=== PATIENT | female | born 1950 | race Hispanic/Latino ===

== ENCOUNTER 2017-09-18 10:16 | Emergency (ER) | payer MEDICARE | END 2017-09-18 10:44 | disposition home or self-care (01) | LOC: EDH 10:16 | DX: K64.9 Unspecified hemorrhoids (principal); E78.5 Hyperlipidemia, unspecified; I10 Essential (primary) hypertension; Z88.0 Allergy status to penicillin; Z88.6 Allergy status to analgesic agent; Z88.8 Allergy status to other drugs, medicaments and biological substances ==

== ENCOUNTER 2017-09-23 17:27 | Emergency (ER) | payer MEDICARE ==
[2017-09-23 18:07] LABS: BASOPHILS % (AUTO) 0.8 % (0.0-5.0); EOSINOPHILS % (AUTO) 1.9 % (0.0-8.0); HEMATOCRIT 40.4 % (36-48); LYMPHOCYTES % (AUTO) 34.3 % (21.0-51.0); MEAN CORPUSCULAR HEMOGLOBIN 30.1 pg (27.0-33.0); MEAN CORPUSCULAR HGB CONC 34.8 g/dL (32.0-36.0); MEAN CORPUSCULAR VOLUME 86.4 fL (79-99); MONOCYTES % (AUTO) 7.8 % (3.0-13.0); NEUTROPHILS % (AUTO) 55.2 % (40.0-77.0); PLATELET COUNT (AUTO) 196 K/uL (130-400); RED BLOOD CELL COUNT(AUTO) 4.67 MIL/uL (4.00-5.50); RED CELL DISTRIBUTION WIDTH 14.4 % (11.0-15.5)
[2017-09-23 18:12] LABS: APPEARANCE,URINE Clear (CLEAR); BILIRUBIN,URINE Negative (NEGATIVE); COLOR,URINE Yellow (YELLOW); GLUCOSE, URINE (UA) Negative (NEGATIVE); KETONES,URINE Negative (NEGATIVE); LEUKOCYTE ESTERASE ,URINE Small (NEGATIVE); NITRATE,URINE Negative (NEGATIVE); OCCULT BLOOD,URINE Negative (NEGATIVE); PH,URINE 6.5 (5.0-8.0); PROTEIN,URINE Negative (NEGATIVE)
[2017-09-23 18:18] LABS: AMPHET/METH SCREEN,URINE NEGATIVE (NEGATIVE); BARBITURATE SCREEN, URINE NEGATIVE (NEGATIVE); BENZODIAZEPINES SCREEN,URINE NEGATIVE (NEGATIVE); CANNABINOID SCREEN,URINE NEGATIVE (NEGATIVE); COCAINE SCREEN,URINE NEGATIVE (NEGATIVE); OPIATE SCREEN,URINE NEGATIVE (NEGATIVE); PHENCYCLIDINE SCREEN,URINE NEGATIVE (NEGATIVE)
[2017-09-23 18:20] LABS: CREATININE 0.8 mg/dL (0.5-1.5); INR 1.09 (0.85-1.15); PARTIAL THROMBOPLASTIN TIME 23.3 SEC (26.3-35.5); POTASSIUM 3.1 mmol/L (3.5-5.1); PROTHROMBIN TIME 11.4 SEC (9.6-11.6)
[2017-09-23 18:29] LABS: BACTERIA,URINE Rare /HPF (None Seen); RBC,URINE 0-1 /HPF (0-1); SQUAMOUS EPITHELIAL CELL,UR Rare /LPF (0-2)
[2017-09-23] MEDS ORDERED: POTASSIUM BICARB/CIT AC 25 MEQ TABLET.EFF ONE (18:30)
[2017-09-23] MEDS ORDERED: TRAMADOL HCL 50 MG TABLET ONE (18:31)
[2017-09-23 18:32] LABS: ALBUMIN 3.6 g/dL (3.5-5.0); BILIRUBIN,TOTAL 2.1 mg/dL (0.2-1.0); CREATINE KINASE MB 0.7 ng/mL (0.5-3.6); TOTAL PROTEIN, SERUM 6.1 g/dL (6.0-8.3)
== END 2017-09-23 19:20 | disposition home or self-care (01) ==
LOC: EDH 17:27
DX: M25.511 Pain in right shoulder (principal); I10 Essential (primary) hypertension; E78.5 Hyperlipidemia, unspecified; Z88.0 Allergy status to penicillin; Z88.6 Allergy status to analgesic agent; Z88.8 Allergy status to other drugs, medicaments and biological substances
CPT/HCPCS: 36415; 71045; 73030; 80053; 80305; 81001; 82150; 82550; 82553; 83690; 84484; 85025; 85610; 85730; 93005

== ENCOUNTER 2017-10-20 00:25 | Emergency (ER) | payer MEDICARE ==
[2017-10-20] MEDS ORDERED: LIDOCAINE HCL 2% JELLY 5 ML ONE (00:58)
[2017-10-20] MEDS ORDERED: HYDROCORTISONE 25 MG SUPPOSITORY PR ONE (01:03)
== END 2017-10-20 01:39 | disposition home or self-care (01) ==
LOC: EDH 00:25
DX: K64.8 Other hemorrhoids (principal); M19.90 Unspecified osteoarthritis, unspecified site; E78.5 Hyperlipidemia, unspecified; I10 Essential (primary) hypertension; Z88.6 Allergy status to analgesic agent; Z98.890 Other specified postprocedural states

== ENCOUNTER 2018-06-18 08:54 | Emergency (ER) | payer MEDICARE ==
[2018-06-18] MEDS ORDERED: ONDANSETRON 4 MG TABLET ONE (09:09)
[2018-06-18 09:10] LABS: BASOPHILS % (AUTO) 0.6 % (0.0-5.0); EOSINOPHILS % (AUTO) 2.5 % (0.0-8.0); HEMATOCRIT 44.3 % (36-48); LYMPHOCYTES % (AUTO) 36.9 % (21.0-51.0); MEAN CORPUSCULAR HEMOGLOBIN 29.3 pg (27.0-33.0); MEAN CORPUSCULAR HGB CONC 33.5 g/dL (32.0-36.0); MEAN CORPUSCULAR VOLUME 87.5 fL (79-99); MONOCYTES % (AUTO) 6.1 % (3.0-13.0); NEUTROPHILS % (AUTO) 53.9 % (40.0-77.0); NUCLEATED RED BLOOD CELLS 0.1 % (0.0-0.19); PLATELET COUNT (AUTO) 158 K/uL (130-400); RED BLOOD CELL COUNT(AUTO) 5.06 MIL/uL (4.00-5.50); RED CELL DISTRIBUTION WIDTH 13.9 % (11.0-15.5); WHITE BLOOD COUNT (AUTO) 6.8 K/uL (4.8-10.8)
[2018-06-18 09:20] LABS: CREATININE 0.8 mg/dL (0.5-1.5); POTASSIUM 3.9 mmol/L (3.5-5.1)
[2018-06-18 09:25] LABS: ALBUMIN 3.5 g/dL (3.5-5.0); BILIRUBIN,TOTAL 2.2 mg/dL (0.2-1.0); TOTAL PROTEIN, SERUM 6.9 g/dL (6.0-8.3)
== END 2018-06-18 10:37 | disposition home or self-care (01) ==
LOC: EDH 08:54
DX: R42 Dizziness and giddiness (principal); M19.90 Unspecified osteoarthritis, unspecified site; F41.9 Anxiety disorder, unspecified; F32.9 Major depressive disorder, single episode, unspecified; E78.5 Hyperlipidemia, unspecified; I10 Essential (primary) hypertension; M54.12 Radiculopathy, cervical region; Z88.6 Allergy status to analgesic agent; Z98.890 Other specified postprocedural states
CPT/HCPCS: 36415; 80053; 85025; 99284; Q0162

== ENCOUNTER 2018-09-28 21:16 | Emergency (ER) | payer MEDICARE ==
[2018-09-28] MEDS ORDERED: MAG HYDROX/AL HYDROX/SIMETH ES 30 ML SUSP UDCUP ONE (21:43)
[2018-09-28] MEDS ORDERED: LIDOCAINE HCL 2% VISCOUS 15 ML UDCUP ONE (21:43)
[2018-09-28] MEDS ORDERED: ONDANSETRON HCL 4 MG/2 ML VIAL ONE (21:44)
[2018-09-28 21:45] LABS: BASOPHILS % (AUTO) 1.5 % (0.0-5.0); EOSINOPHILS % (AUTO) 2.4 % (0.0-8.0); LYMPHOCYTES % (AUTO) 33.8 % (21.0-51.0); MEAN CORPUSCULAR HEMOGLOBIN 29.9 pg (27.0-33.0); MEAN CORPUSCULAR HGB CONC 33.8 g/dL (32.0-36.0); MEAN CORPUSCULAR VOLUME 88.4 fL (79-99); MONOCYTES % (AUTO) 5.9 % (3.0-13.0); NEUTROPHILS % (AUTO) 56.4 % (40.0-77.0); PLATELET COUNT (AUTO) 191 K/uL (130-400); RED BLOOD CELL COUNT(AUTO) 4.52 MIL/uL (4.00-5.50); RED CELL DISTRIBUTION WIDTH 14.5 % (11.0-15.5); WHITE BLOOD COUNT (AUTO) 7.7 K/uL (4.8-10.8)
[2018-09-28 21:57] LABS: CREATININE 0.7 mg/dL (0.5-1.5)
[2018-09-28 22:01] LABS: ALBUMIN 3.4 g/dL (3.5-5.0); BILIRUBIN,DIRECT 0.1 mg/dL (0.0-0.3); BILIRUBIN,TOTAL 0.9 mg/dL (0.2-1.0); TOTAL PROTEIN, SERUM 6.4 g/dL (6.0-8.3)
== END 2018-09-28 23:27 | disposition home or self-care (01) ==
LOC: EDH 21:16
DX: R10.13 Epigastric pain (principal); I10 Essential (primary) hypertension; F32.9 Major depressive disorder, single episode, unspecified; E78.5 Hyperlipidemia, unspecified; M19.90 Unspecified osteoarthritis, unspecified site; Z88.5 Allergy status to narcotic agent; Z88.1 Allergy status to other antibiotic agents
CPT/HCPCS: 36415; 74176; 80048; 80076; 82550; 83690; 84484; 85025; 93005; 96374; 99284; J2405

== ENCOUNTER 2019-05-01 22:09 | Emergency (ER) | payer MEDICARE ==
[2019-05-01 22:38] LABS: BASOPHILS % (AUTO) 0.9 % (0.0-5.0); EOSINOPHILS % (AUTO) 3.4 % (0.0-8.0); HEMATOCRIT 40.8 % (36-48); LYMPHOCYTES % (AUTO) 37.3 % (21.0-51.0); MEAN CORPUSCULAR HEMOGLOBIN 30.5 pg (27.0-33.0); MEAN CORPUSCULAR VOLUME 89.6 fL (79-99); MONOCYTES % (AUTO) 8.1 % (3.0-13.0); NEUTROPHILS % (AUTO) 50.3 % (40.0-77.0); NUCLEATED RED BLOOD CELLS 0.1 % (0.0-0.19); PLATELET COUNT (AUTO) 163 K/uL (130-400); RED BLOOD CELL COUNT(AUTO) 4.56 MIL/uL (4.00-5.50); RED CELL DISTRIBUTION WIDTH 13.6 % (11.0-15.5); WHITE BLOOD COUNT (AUTO) 7.6 K/uL (4.8-10.8)
[2019-05-01 22:46] LABS: APPEARANCE,URINE Cloudy (CLEAR); BILIRUBIN,URINE Negative (NEGATIVE); COLOR,URINE Yellow (YELLOW); GLUCOSE, URINE (UA) Negative (NEGATIVE); KETONES,URINE Negative (NEGATIVE); LEUKOCYTE ESTERASE ,URINE Trace (NEGATIVE); NITRATE,URINE Negative (NEGATIVE); OCCULT BLOOD,URINE Negative (NEGATIVE); PROTEIN,URINE Negative (NEGATIVE)
[2019-05-01 22:46] LABS: POTASSIUM 3.8 mmol/L (3.5-5.1)
[2019-05-01 22:50] LABS: ALBUMIN 3.7 g/dL (3.5-5.0); BILIRUBIN,TOTAL 1.2 mg/dL (0.2-1.0); TOTAL PROTEIN, SERUM 6.6 g/dL (6.0-8.3)
[2019-05-01 23:01] LABS: BACTERIA,URINE Rare /HPF (None Seen); CALCIUM OXALATE CRYSTALS,UR Many /LPF (None Seen); RBC,URINE 0-1 /HPF (0-1); WBC,URINE 0-1 /HPF (0-1)
[2019-05-01] MEDS ORDERED: SODIUM CHLORIDE 0.9% 1000ML 1,000 ML IV ONE (23:19)
[2019-05-01] MEDS ORDERED: ONDANSETRON HCL 4 MG/2 ML VIAL ONE (23:20)
[2019-05-01] MEDS ORDERED: MEPERIDINE-PF 25 MG/ML SYG ONE (23:21)
[2019-05-01] MEDS ORDERED: FAMOTIDINE/PF 20 MG/2 ML VIAL IV ONE (23:21)
[2019-05-01] MEDS ORDERED: IOHEXOL-350 75 ML VIAL IV ONE (23:25)
== END 2019-05-02 01:14 | disposition home or self-care (01) ==
LOC: EDH 22:09
DX: K29.70 Gastritis, unspecified, without bleeding (principal); K82.9 Disease of gallbladder, unspecified; F41.9 Anxiety disorder, unspecified; M19.90 Unspecified osteoarthritis, unspecified site; F32.9 Major depressive disorder, single episode, unspecified; E78.5 Hyperlipidemia, unspecified; I10 Essential (primary) hypertension; E03.9 Hypothyroidism, unspecified; K21.9 Gastro-esophageal reflux disease without esophagitis; Z88.6 Allergy status to analgesic agent; Z98.890 Other specified postprocedural states
CPT/HCPCS: 36415; 74177; 76705; 80053; 81001; 82150; 83690; 84484; 85025; 93005; 96361; 96374; 96375; 99285; J2175; J2405; J3490; J7030; Q9967

== ENCOUNTER 2020-01-04 00:59 | Emergency (ER) | payer MEDICARE ==
[~2020-01-04 00:59] MED LIST: ALEN70TA10 PO; AMLO2.5T4 PO; ATOR40TA71 PO; ESOM40CA54 PO; LEVO500T89 PO; LEVO75TA10 PO; LISI-613 PO; METR-172 PO; PARO-37 PO
[2020-01-04 01:20] LABS: APPEARANCE,URINE Clear (CLEAR); BILIRUBIN,URINE Negative (NEGATIVE); COLOR,URINE Yellow (YELLOW); GLUCOSE, URINE (UA) Negative (NEGATIVE); KETONES,URINE Negative (NEGATIVE); LEUKOCYTE ESTERASE ,URINE Trace (NEGATIVE); NITRATE,URINE Negative (NEGATIVE); OCCULT BLOOD,URINE Negative (NEGATIVE); PH,URINE 6.5 (5.0-8.0); PROTEIN,URINE Negative (NEGATIVE)
[2020-01-04 01:29] LABS: BASOPHILS % (AUTO) 0.5 % (0.0-5.0); EOSINOPHILS % (AUTO) 2.7 % (0.0-8.0); HEMATOCRIT 37.6 % (36-48); LYMPHOCYTES % (AUTO) 41.3 % (21.0-51.0); MEAN CORPUSCULAR HEMOGLOBIN 29.1 pg (27.0-33.0); MEAN CORPUSCULAR HGB CONC 33.5 g/dL (32.0-36.0); MEAN CORPUSCULAR VOLUME 86.8 fL (79-99); MONOCYTES % (AUTO) 7.2 % (3.0-13.0); PLATELET COUNT (AUTO) 153 K/uL (130-400); RED BLOOD CELL COUNT(AUTO) 4.33 MIL/uL (4.00-5.50); RED CELL DISTRIBUTION WIDTH 13.4 % (11.0-15.5)
[2020-01-04] MEDS ORDERED: ONDANSETRON HCL 4 MG/2 ML VIAL ONE (01:29)
[2020-01-04] MEDS ORDERED: KETOROLAC TROMETHAMINE 15MG/ML ONE (01:30)
[2020-01-04 01:31] LABS: BACTERIA,URINE Few /HPF (None Seen); RBC,URINE None Seen /HPF (0-1); WBC,URINE None Seen /HPF (0-1)
[2020-01-04 01:32] LABS: MUCUS,URINE Moderate LPF (None Seen); SQUAMOUS EPITHELIAL CELL,UR Few /HPF (0-2)
[2020-01-04 01:39] LABS: CREATININE 0.9 mg/dL (0.5-1.5); POTASSIUM 4.1 mmol/L (3.5-5.1)
[2020-01-04 01:43] LABS: ALBUMIN 3.8 g/dL (3.5-5.0); BILIRUBIN,DIRECT 0.3 mg/dL (0.0-0.3); BILIRUBIN,TOTAL 1.7 mg/dL (0.2-1.0)
== END 2020-01-04 03:33 | disposition home or self-care (01) ==
LOC: EDH 00:59
DX: K80.50 Calculus of bile duct without cholangitis or cholecystitis without obstruction (principal); R10.10 Upper abdominal pain, unspecified; M19.90 Unspecified osteoarthritis, unspecified site; F32.9 Major depressive disorder, single episode, unspecified; K21.9 Gastro-esophageal reflux disease without esophagitis; I10 Essential (primary) hypertension; E03.9 Hypothyroidism, unspecified; E78.5 Hyperlipidemia, unspecified; F41.9 Anxiety disorder, unspecified; Z98.890 Other specified postprocedural states; Z88.6 Allergy status to analgesic agent; Z88.3 Allergy status to other anti-infective agents
CPT/HCPCS: 36415; 74176; 76705; 80048; 80076; 81001; 82550; 83690; 84484; 85025; 93005; 96374; 96375; 99285; J1885; J2405

== ENCOUNTER 2021-12-24 19:33 | Emergency (ER) | payer OTHER, MEDICARE ==
[~2021-12-24] VITALS: Ht 157.5 cm; Wt 93.0 kg
[~2021-12-24 19:33] MED LIST changes: -ALEN70TA10 PO; +ALEN70TA80 PO; -LEVO500T89 PO; +LEVO500T90 PO; -LISI-613 PO; +LISI20TA24 PO
[2021-12-24] MEDS ORDERED: CYCLOBENZAPRINE HCL 10 MG TABLET ONE (19:53)
[2021-12-24] MEDS ORDERED: HYDROCODONE/ACETAMINOPHEN 10/325 MG TAB ONE (19:54)
[2021-12-24] MEDS ORDERED: HYDROCODONE/ACETAMINOPHEN 5/325 MG TAB PO SCH (20:00)
[2021-12-24] MEDS ORDERED: CYCLOBENZAPRINE HCL 10 MG TABLET PO SCH (20:00)
[2021-12-24] MEDS ORDERED: NAPR-1180 PO (22:12)
[2021-12-24] MEDS ORDERED: CYCL10TA16 PO (22:12)
[2021-12-24 22:17] VITALS: BP 147/68
== END 2021-12-24 22:23 | disposition home or self-care (01) ==
LOC: EDH 19:33
DX: S20.212A Contusion of left front wall of thorax, initial encounter (principal); S50.02XA Contusion of left elbow, initial encounter; S60.221A Contusion of right hand, initial encounter; S50.312A Abrasion of left elbow, initial encounter; I10 Essential (primary) hypertension; Z88.5 Allergy status to narcotic agent; Z79.899 Other long term (current) drug therapy; Z79.1 Long term (current) use of non-steroidal anti-inflammatories (NSAID); X58.XXXA Exposure to other specified factors, initial encounter; Y93.89 Activity, other specified; Y92.89 Other specified places as the place of occurrence of the external cause; Y99.8 Other external cause status
CPT/HCPCS: 71250; 73080; 73130

== ENCOUNTER 2023-09-03 13:21 | Emergency (ER) | payer MEDICARE ==
[~2023-09-03] VITALS: Ht 157.5 cm; Wt 90.7 kg
[~2023-09-03 13:21] MED LIST changes: +CYCL10TA16 PO; +LEVO-70 PO; -LEVO500T90 PO; +NAPR-1180 PO
[2023-09-03 13:33] VITALS: BP 172/87; PULSE 84; RESP 16
[2023-09-03] MEDS ORDERED: IBUPROFEN 600 MG TABLET PO ONE (14:00)
[2023-09-03] MEDS ORDERED: PREDNISONE 20 MG TABLET PO ONE (16:00)
[2023-09-03] MEDS ORDERED: PRED20TA3 PO (16:03)
== END 2023-09-03 16:10 | disposition home or self-care (01) ==
LOC: EDH 13:21
DX: M19.90 Unspecified osteoarthritis, unspecified site (principal); M25.542 Pain in joints of left hand; M25.541 Pain in joints of right hand; E78.00 Pure hypercholesterolemia, unspecified; I10 Essential (primary) hypertension; K21.9 Gastro-esophageal reflux disease without esophagitis; Z79.899 Other long term (current) drug therapy; Z88.5 Allergy status to narcotic agent
CPT/HCPCS: 73130

== ENCOUNTER 2025-01-26 13:43 | Emergency (ER) | payer OTHER, MEDICAID ==
[~2025-01-26] VITALS: Ht 154.9 cm; Wt 89.8 kg
[~2025-01-26 13:43] MED LIST changes: -ESOM40CA54 PO; +ESOM40CA66 PO; +PRED20TA3 PO
[2025-01-26] MEDS: LACTATED RINGERS 1000ML 1,000 ML IV ONE (13:51)
[2025-01-26 14:00] VITALS: BP 129/70; PULSE 69; RESP 25; TEMP 98.2; O2SAT 94
--- NOTE | 2025-01-26 14:01 | EKG ---
[facility] Test Date: 2025-01-26 Test Time: 13:58:50 Pat Name: OUSMANE MO Department: [facility] Room: Gender: F Bookkeeper Assistant: [id number] : 1950 Requested By: RADHA VILLEDA Order Number: [id number] Reading MD: [place] Measurements Intervals [place] Rate: 74 P: 42 UT: 157 QRS: 19 QRSD: 92 T: 39 QT: 391 QTc: 435 Interpretive Statements Sinus rhythm Compared to ECG 05/18/2020 19:08:34 No significant changes Electronically Signed On 01-26-2025 17:35:08 CDT by [place] Please click the below link to view image of tracing.
[2025-01-26 14:14] LABS: BASOPHILS # (AUTO) 0.06 K/uL (0.00-0.20); BASOPHILS % (AUTO) 0.7 % (0.0-5.0); EOSINOPHILS # (AUTO) 0.25 K/uL (0.00-0.70); EOSINOPHILS % (AUTO) 2.9 % (0.0-8.0); HEMATOCRIT 41.2 % (36-48); IMMATURE GRANULOCYTE ABSOLUTE 0.02 K/uL (0-1); LYMPHOCYTES % (AUTO) 34.5 % (21.0-51.0); MEAN CORPUSCULAR HEMOGLOBIN 29.7 pg (27.0-33.0); MEAN CORPUSCULAR HGB CONC 33.7 g/dL (32.0-36.0); MONOCYTES # (AUTO) 0.6 K/uL (0.1-1.0); NEUTROPHILS # (AUTO) 4.7 K/uL (1.8-7.7); NEUTROPHILS % (AUTO) 54.7 % (40.0-77.0); PLATELET COUNT (AUTO) 205 K/uL (130-400); RED BLOOD CELL COUNT(AUTO) 4.68 MIL/uL (4.00-5.50); RED CELL DISTRIBUTION WIDTH 13.7 % (11.0-15.5); WHITE BLOOD COUNT (AUTO) 8.5 K/uL (4.8-10.8)
[2025-01-26 14:24] LABS: APPEARANCE,URINE CLEAR (CLEAR); BILIRUBIN,URINE NEGATIVE (NEGATIVE); COLOR,URINE YELLOW (YELLOW); GLUCOSE, URINE (UA) NEGATIVE (NEGATIVE); KETONES,URINE NEGATIVE (NEGATIVE); LEUKOCYTE ESTERASE ,URINE NEGATIVE Leu/uL (NEGATIVE); NITRATE,URINE NEGATIVE (NEGATIVE); OCCULT BLOOD,URINE NEGATIVE (NEGATIVE); PH,URINE 5.5 (5.0-8.0); PROTEIN,URINE 10 mg/dL (NEGATIVE); UROBILINOGEN,URINE 0.2 mg/dL (0.2-1.0)
[2025-01-26 14:25] LABS: ADD UA MICROSCOPIC YES
[2025-01-26 14:26] LABS: CREATININE 0.5 mg/dL (0.5-1.0); MAGNESIUM 2.1 mg/dL (1.80-2.40); POTASSIUM 4.7 mmol/L (3.5-5.1)
[2025-01-26 14:29] LABS: BACTERIA,URINE RARE /HPF (None Seen); MUCUS,URINE FEW LPF (None Seen); SQUAMOUS EPITHELIAL CELL,UR RARE /HPF (0-2); UNCLASSIFIED CRYSTAL 2 /HPF (None Seen)
[2025-01-26 14:40] LABS: B-TYPE NATRIURETIC PEPTIDE 31 pg/mL (0-100)
--- NOTE | 2025-01-26 14:52 | ERN ---
General Chief Complaint: Syncope Stated Complaint: SYNCOPY Time Seen by MD: 13:44 Source: patient History of Present Illness Initial Comments Patient is a 74-year-old female coming in to be evaluated for near-syncope syncope episode earlier today. He is patient states that she had a episodes but now she feels much better. No fever no chills no nausea no vomiting. Allergies: Coded Allergies: codeine (Verified Allergy, Unknown, 09/07/19) oseltamivir (Verified Allergy, Unknown, 09/07/19) Home Meds Active Scripts Prednisone (Prednisone) 20 Mg Tablet, 2 TAB PO DAILY for 5 Days, #10 TAB 0 Refills Prov:MAGALYS RAGLAND SUPERVISOR ELECTRONICS TESTING 09/03/23 Cyclobenzaprine HCl (Flexeril) 10 Mg Tab, 10 MG PO BID, #30 TAB Prov:MONIKA MANN 12/24/21 Naproxen (Naprosyn) 500 Mg Tablet, 500 MG PO BIDPC, #60 TAB Prov:MONIKA MANN 12/24/21 Metronidazole (Metronidazole) 500 Mg Tablet, 500 MG PO TID for 3 Days, #9 TAB Prov:MANE ALMENDAREZ PPA TEACHER 09/10/19 Levofloxacin (Levofloxacin) 500 Mg Tablet, 500 MG PO DAILY for 3 Days, #3 TAB Prov:MANE ALMENDAREZ PPA TEACHER 09/10/19 Reported Medications Alendronate Sodium (Alendronate Sodium) 70 Mg Tablet, 70 MG PO QWEEK, TAB q sunday09/07/19 Esomeprazole Magnesium (Esomeprazole Magnesium) 40 Mg Capsule.dr, 40 MG PO ACBKFST, CAP 09/07/19 Levothyroxine Sodium (Levothyroxine Sodium) 75 Mcg Tablet, 75 MCG PO ACBKFST, TAB 09/07/19 Lisinopril (Lisinopril) 20 Mg Tablet, 20 MG PO DAILY, TAB 09/07/19 Amlodipine Besylate (Amlodipine Besylate) 2.5 Mg Tablet, 2.5 MG PO DAILY, TAB 09/07/19 Atorvastatin Calcium (Atorvastatin Calcium) 40 Mg Tablet, 40 MG PO HS, TAB 09/07/19 Paroxetine HCl (Paroxetine HCl) 20 Mg Tablet, 20 MG PO DAILY, TAB 09/07/19 Past Medical History Past Medical History: Hypertension, Other Medical History Other: VERTIGO Past Surgical History: Family History Family History: Negative Social History Social History: Negative Female( History) History: Not Applicable ROS Dictation CONSTITUTIONAL: No chills, no fever, weakness, no diaphoresis, no malaise. HEAD/FACE: No signs of trauma. EENT: No eye pain, no blurred vision, no tearing, no double vision, no ear pain, no ear discharge, no nose pain, no nasal congestion, no throat pain, no throat swelling, no mouth pain. RESPIRATORY: No cough, no orthopnea, no SOB, no stridor, no wheezing. CARDIOVASCULAR: No chest pain, no edema, no palpitations, no syncope. GASTROINTESTINAL/ABDOMINAL: No abdominal pain, no constipation, no diarrhea, no nausea, no vomiting. GENITOURINARY: No abnormal discharge, no dysuria, no frequent urination, no hematuria. No complaints of pain in the genitals. MUSCULOSKELETAL: No back pain, no gout, no joint pain, no joint swelling, no muscle pain, no muscle stiffness, no neck pain. INTEGUMENTARY: No change in color, no change in hair/nails, no dryness, no lesion, no lumps, no rash. NEUROLOGICAL/PSYCH: No anxiety, not depressed, no emotional problem, no headache, no numbness, no pre-existing deficit, no history of seizures, no tremors, no weakness. HEMATOLOGIC/LYMPHATIC: Not anemic, no history of blood clots, no apparent bleeding, no bruising, glands not swollen. All Systems Negative, Except as Noted. Physical Exam Physical Exam Dictation VITAL SIGNS: Reviewed. GENERAL APPEARANCE: Alert, oriented x3, no acute distress, obese. HEAD AND FACE: Non-traumatic. EYES: PERRL, pink conjunctivas, eyelid no trauma, anterior chamber clear. EARS: Pinnas intact and no signs of trauma or erythema. Ear canals clear and no discharge. TMs no erythema. NOSE: No discharge, no bleeding. OROPHARYNX: Mouth normal, teeth no caries, tongue pink. Pharynx clear, no erythema. Tonsils no exudates, no abscesses noted. Mucous membrane moist. NECK: Supple, non-tender, no thyromegaly, no masses, no JVD, no bruits. BREAST: Deferred. CHEST: No tenderness, no crepitus, no paradoxical movement, no retractions. LUNGS: Clear, well-ventilated, symmetric, no rales, no wheezing, no rhonchi, no stridor, good breath sounds bilaterally. HEART: Regular rate, regular rhythm, no murmur, no gallops. VASCULAR: No peripheral edema. ABDOMEN: Soft, positive bowel sounds, nondistended, no guarding, nontender, no rebound, no masses no hepatomegaly, no splenomegaly, no Palacios's sign, no hernias. RECTAL: Deferred. GENITAL: Deferred. NEUROLOGICAL: Normal speech, gross motor function intact, gross sensory function intact. MUSCULOSKELETAL: Neck nontender, full range of motion, back nontender, full range of motion. EXTREMITIES: Nontender, full range of motion. SKIN: Color pink, dry, no turgor, no rash, no lacerations, no abrasions, no contusions. LYMPHATICS: Deferred. Results Laboratory and Microbiology Lab and Micro Result Laboratory Tests Test 01/26/25 14:04 01/26/25 14:10 White Blood Count 8.5 K/uL (4.8-10.8) Red Blood Count 4.68 MIL/uL (4.00-5.50) Hemoglobin 13.9 g/dL (12.0-16.0) Hematocrit 41.2 % (36-48) Mean Corpuscular Volume 88.0 fL (79-99) Mean Corpuscular Hemoglobin 29.7 pg (27.0-33.0) Mean Corpuscular Hemoglobin Concent 33.7 g/dL (32.0-36.0) Red Cell Distribution Width 13.7 % (11.0-15.5) Platelet Count 205 K/uL (130-400) Mean Platelet Volume 11.4 fL (7.5-10.5) H Immature Granulocyte % (Auto) 0.2 % (0-1) Neutrophils (%) (Auto) 54.7 % (40.0-77.0) Lymphocytes (%) (Auto) 34.5 % (21.0-51.0) Monocytes (%) (Auto) 7.0 % (3.0-13.0) Eosinophils (%) (Auto) 2.9 % (0.0-8.0) Basophils (%) (Auto) 0.7 % (0.0-5.0) Neutrophils # (Auto) 4.7 K/uL (1.8-7.7) Lymphocytes # (Auto) 3.0 K/uL (1.0-4.8) Monocytes # (Auto) 0.6 K/uL (0.1-1.0) Eosinophils # (Auto) 0.25 K/uL (0.00-0.70) Basophils # (Auto) 0.06 K/uL (0.00-0.20) Absolute Immature Granulocyte (auto 0.02 K/uL (0-1) Nucleated Red Blood Cells 0.0 % (0.0-0.19) Sodium Level 143 mmol/L (136-145) Potassium Level 4.7 mmol/L (3.5-5.1) Chloride Level 107 mmol/L (101-111) Carbon Dioxide Level 29 mmol/L (21-32) Blood Urea Nitrogen 26 mg/dL (7-18) H Creatinine 0.5 mg/dL (0.5-1.0) Glomerular Filtration Rate Calc 98 mL/min (>90) Random Glucose 103 mg/dL (70-105) Total Calcium 8.5 mg/dL (8.5-10.1) Magnesium Level 2.10 mg/dL (1.80-2.40) Troponin I High Sensitivity < 4 ng/L (4-50) L B-Type Natriuretic Peptide 31 pg/mL (0-100) Urine Color YELLOW (YELLOW) Urine Appearance CLEAR (CLEAR) Urine pH 5.5 (5.0-8.0) Urine Specific [place] 1.032 (1.001-1.031) Urine Protein 10 mg/dL (NEGATIVE) H Urine Glucose (UA) NEGATIVE mg/dL (NEGATIVE) Urine Ketones NEGATIVE mg/dL (NEGATIVE) Urine Occult Blood NEGATIVE (NEGATIVE) Urine Nitrate NEGATIVE (NEGATIVE) Urine Bilirubin NEGATIVE mg/dL (NEGATIVE) Urine Urobilinogen 0.2 mg/dL (0.2-1.0) Urine Leukocyte Esterase NEGATIVE Adrian/uL Urine RBC 2-5 /HPF (0-1) H Urine WBC 2-5 /HPF (0-1) H Urine Squamous Epithelial Cells RARE /HPF (0-2) Urine Other Crystals (Auto) 2 /HPF (None Seen) Urine Bacteria RARE /HPF (None Seen) Labs Reviewed?: Yes EKG/XRAY/US/CT/MRI EKG Comment 01/26/2025 time 1:58 p.m. Ventricular rate 74 Sinus rhythm [place] [address] wave elevation or depression MDM MDM: Differential diagnosis: Syncope, near-syncope, generalized body weakness, Rationale: Tests considered and ordered secondary to shared decision making include: labs, ECG and radiology Previous outside records reviewed: Old ER visits. Risk of complication and/or morbidity or mortality of patient management: None Medications-Per medication reconciliation Need for hospitalization: Patient does meet criteria for hospitalization. Need for emergency major/minor surgery: No There are no social concerns with this patient. Prescription drug management Prescriptions will include symptomatic care Patient's prior external medical records from other ER visits were reviewed by me as indicated. Prior testing and results from previous visits were reviewed. Prior tests were taken into account with medical decision making and resource utilization, independent historian/historians were used to obtain complete medical history. I independently interpreted the test that were performed, results were reviewed by me and considered findings on radiology if ordered. Medical management and examination interpretation discussions were had by me with other qualified healthcare professionals as indicated for the patient's care. Patient presented with a syncope near-syncope episode earlier today. I did stress the importance of keeping her here to be evaluated by cardiology and has a more thorough workup but patient refused. I expressed my concerns of proper evaluation especially with her age but has been also was against admission very adamant and states that they will follow up with her doctor. ED Course Orders Procedure Category Date Status Time Cbc With Differential LAB 01/26/25 Complete 13:48 B-Type Natriuretic LAB 01/26/25 Complete Peptide 13:48 Chest 1vw RAD 01/26/25 Resulted 13:48 12 Lead Ekg Tracing- EKG 01/26/25 Complete Technical 13:48 Lactated Ringers PHA 01/26/25 Complete 1000ml (Lactated 14:00 Magnesium LAB 01/26/25 Complete 13:48 Troponin I High LAB 01/26/25 Complete Sensitivity 13:48 Urinalysis Profile LAB 01/26/25 Complete 13:48 Basic Metabolic Panel LAB 01/26/25 Complete 13:48 Current Medications Medications (Trade) Dose Ordered Sig/Travis Route PRN Reason Start Time Stop Time Status Last Admin Dose Admin Lactated Ringer's 1,000 ml @ 0 mls/hr ONCE ONCE IV 01/26/25 14:00 01/26/25 14:01 DC 01/26/25 13:51 Vital Signs Date Time Temp Pulse Resp B/P (MAP) Pulse Ox O2 Delivery O2 Flow Rate FiO2 01/26/25 14:00 98.2 69 25 129/70 94 Room Air* 0 21 01/26/25 13:49 98.2 73 20 139/85 98 Nasal Cannula 2.0 DX & DISP Disposition: AMA Departure Impression: Primary Impression: Syncope Additional Impressions: Near syncope, History of vertigo Condition: Against Medical Advice Referrals: SELF,REFERRAL (PCP) RADHA VILLEDA MD Jan 26, 2025 14:52
--- NOTE | 2025-01-26 14:58 | HMCIMG ---
Exam Type: CHEST 1VW Clinical Information: sycnope Comparison: None Findings: The lungs are clear of infiltrates. The heart is enlarged. Bony and soft tissue structures of the chest wall are unremarkable. IMPRESSION: Cardiomegaly. Clear lungs.
== END 2025-01-26 15:38 | disposition left against medical advice (07) ==
LOC: EDH 13:43
DX: R55 Syncope and collapse (principal); I10 Essential (primary) hypertension; Z79.52 Long term (current) use of systemic steroids; Z79.899 Other long term (current) drug therapy; Z88.5 Allergy status to narcotic agent
CPT/HCPCS: 99285; 96360; 71045; 96361; 83735; 84484; 80048; 83880; 85025; 81001; 36415; 93005; J7120

== ENCOUNTER 2025-07-27 22:58 | Emergency (ER) | payer OTHER, MEDICAID ==
[~2025-07-27] VITALS: Ht 180.3 cm; Wt 88.0 kg
[2025-07-27 23:50] LABS: IMMATURE GRANULOCYTE ABSOLUTE 0.02 K/uL (0-1); NUCLEATED RED BLOOD CELLS 0.0 % (0.0-0.19); PLATELET COUNT (AUTO) 163 K/uL (130-400); RED BLOOD CELL COUNT(AUTO) 4.87 MIL/uL (4.00-5.50); RED CELL DISTRIBUTION WIDTH 13.7 % (11.0-15.5); WHITE BLOOD COUNT (AUTO) 7.4 K/uL (4.8-10.8)
[2025-07-27 23:57] LABS: CREATININE 0.7 mg/dL (0.5-1.0); GLOMERULAR FILTR. RATE CALC 90.0 mL/min (>90); GLUCOSE,RANDOM 106.0 mg/dL (70-105); SODIUM SERUM 141.0 mmol/L (136-145); UREA NITROGEN, BLOOD 21.0 mg/dL (7-18)
--- NOTE | 2025-07-28 00:37 | ERN ---
ED Note History of Present Illness Stated Complaint: C/O HIGH B/P Chief Complaint: Hypertension Time Seen by MD: 23:08 Dictation: This is a 74-year-old female who presented to the emergency room stating that she and her do routine blood pressure checks intact and her blood pr essure apparently was over 200 systolic and hence they came in for evaluation. No headache blurred vision diplopia facial droop motor weakness or seizure activity. No history of any chest pain pressure hearing patient was totally asymptomatic from review standpoint Temperature 98 pulse 71 respirations 20 blood pressure 200/108 at the time of presentation with a pulse oximetry of 96% on room air Chronic medical problems include anxiety and depression and osteoarthritis, hypertension, hypercholesterolemia and hypothyroidism Allergies: Coded Allergies: codeine (Verified Allergy, Unknown, 09/07/19) oseltamivir (Verified Allergy, Unknown, 09/07/19) Home Meds Active Scripts Prednisone (Prednisone) 20 Mg Tablet, 2 TAB PO DAILY for 5 Days, #10 TAB 0 Refills Prov:MAGALYS RAGLAND RETAIL DELIVERY DRIVER 09/03/23 Cyclobenzaprine HCl (Flexeril) 10 Mg Tab, 10 MG PO BID, #30 TAB Prov:MONIKA MANN 12/24/21 Naproxen (Naprosyn) 500 Mg Tablet, 500 MG PO BIDPC, #60 TAB Prov:MONIKA MANN 12/24/21 Metronidazole (Metronidazole) 500 Mg Tablet, 500 MG PO TID for 3 Days, #9 TAB Prov:MANE ALMENDAREZ METAL TRIM ERECTOR 09/10/19 Levofloxacin (Levofloxacin) 500 Mg Tablet, 500 MG PO DAILY for 3 Days, #3 TAB Prov:MANE ALMENDAREZ METAL TRIM ERECTOR 09/10/19 Reported Medications Alendronate Sodium (Alendronate Sodium) 70 Mg Tablet, 70 MG PO QWEEK, TAB q sunday09/07/19 Esomeprazole Magnesium (Esomeprazole Magnesium) 40 Mg Capsule.dr, 40 MG PO ACBKFST, CAP 09/07/19 Levothyroxine Sodium (Levothyroxine Sodium) 75 Mcg Tablet, 75 MCG PO ACBKFST, TAB 09/07/19 Lisinopril (Lisinopril) 20 Mg Tablet, 20 MG PO DAILY, TAB 09/07/19 Amlodipine Besylate (Amlodipine Besylate) 2.5 Mg Tablet, 2.5 MG PO DAILY, TAB 09/07/19 Atorvastatin Calcium (Atorvastatin Calcium) 40 Mg Tablet, 40 MG PO HS, TAB 09/07/19 Paroxetine HCl (Paroxetine HCl) 20 Mg Tablet, 20 MG PO DAILY, TAB 09/07/19 Past Medical History Past Medical History: Anxiety, Arthritis, Depression, High Cholesterol, Hypertension, Hypothyroid Additional Past Medical Hx: VERTIGO Surgical History: Family History: Negative Social History: Negative History: Not Applicable RN Note Reviewed/Agreed w/PFSH: Yes Review of System Dictation Constitutional: Negative for fever,chills, and weight loss Eyes: Negative for injury, pain,redness, and discharge ENT: Negative for injury,pain or swelling Cardiovascular: Negative for chest pain, palpitations, and edema only positive for very high blood pressure Respiratory: Negative for shortness of breath, cough, and wheezing, Abdomen/GI: Negative for abdominal pain, nausea, vomiting, diarrhea, and constipation Back: Negative for injury and pain : Negative for injury, bleeding and discharge MS/Extremity: Negative for injury and deformity Skin: Negative for rash, and discoloration Neuro: Negative for headache, weakness, numbness, tingling, and seizure Psych: Negative for suicide ideation, homicidal ideation, and hallucinations Initial Vital Sign VS Vital Signs Date Time Temp Pulse Resp B/P (MAP) Pulse Ox O2 Delivery O2 Flow Rate FiO2 07/27/25 23:01 98.1 71 20 200/108 96 Room Air 07/27/25 23:55 0 21 Physical Exam Dictation General: awake, alert, NAD Head/Face: Normocephalic, atraumatic Eyes: PERRL, EOMI, vision at baseline ENT: oral cavity clear, TMs clear, no signs of infection Neck: Trachea midline, supple, no nuchal rigidity Cardiovascular: RRR, normal S1/S2, No MRGs, no JVD Respiratory: CTAB, no respiratory distress, No rales or wheezes Abdomen: Soft, non-tender, non-distended, normal bowel sounds, no guarding or rebound. Skin: Warm, dry, normal turgor, no rash MS/Extremity: Pulses equal, no cyanosis, neurovascular intact, FROM Neuro: COAx4, GCS 15, strength 5/5, CN 2-12 intact, normal cerebellar exam, normal gait, Psych: Normal behavior, mood, and affect normal Extremities-trace edema without any palpable cords, Homans sign is negative Results (Laboratory/Radiology) Laboratory/Radiology Laboratory Tests Test 07/27/25 23:42 07/28/25 00:03 White Blood Count 7.4 K/uL (4.8-10.8) Red Blood Count 4.87 MIL/uL (4.00-5.50) Hemoglobin 14.4 g/dL (12.0-16.0) Hematocrit 43.1 % (36-48) Mean Corpuscular Volume 88.5 fL (79-99) Mean Corpuscular Hemoglobin 29.6 pg (27.0-33.0) Mean Corpuscular Hemoglobin Concent 33.4 g/dL (32.0-36.0) Red Cell Distribution Width 13.7 % (11.0-15.5) Platelet Count 163 K/uL (130-400) Mean Platelet Volume 10.6 fL (7.5-10.5) H Immature Granulocyte % (Auto) 0.3 % (0-1) Neutrophils (%) (Auto) 50.9 % (40.0-77.0) Lymphocytes (%) (Auto) 38.1 % (21.0-51.0) Monocytes (%) (Auto) 7.2 % (3.0-13.0) Eosinophils (%) (Auto) 2.7 % (0.0-8.0) Basophils (%) (Auto) 0.8 % (0.0-5.0) Neutrophils # (Auto) 3.8 K/uL (1.8-7.7) Lymphocytes # (Auto) 2.8 K/uL (1.0-4.8) Monocytes # (Auto) 0.5 K/uL (0.1-1.0) Eosinophils # (Auto) 0.20 K/uL (0.00-0.70) Basophils # (Auto) 0.06 K/uL (0.00-0.20) Absolute Immature Granulocyte (auto 0.02 K/uL (0-1) Nucleated Red Blood Cells 0.0 % (0.0-0.19) Sodium Level 141 mmol/L (136-145) Potassium Level 3.7 mmol/L (3.5-5.1) Chloride Level 104 mmol/L (101-111) Carbon Dioxide Level 27 mmol/L (21-32) Blood Urea Nitrogen 21 mg/dL (7-18) H Creatinine 0.7 mg/dL (0.5-1.0) Glomerular Filtration Rate Calc 90 mL/min (>90) Random Glucose 106 mg/dL (70-105) H Total Calcium 8.9 mg/dL (8.5-10.1) Urine Color COLORLESS (YELLOW) Urine Appearance CLEAR (CLEAR) Urine pH 6.0 (5.0-8.0) Urine Specific [place] 1.007 (1.001-1.031) Urine Protein NEGATIVE mg/dL (NEGATIVE) Urine Glucose (UA) NEGATIVE mg/dL (NEGATIVE) Urine Ketones NEGATIVE mg/dL (NEGATIVE) Urine Occult Blood NEGATIVE (NEGATIVE) Urine Nitrate NEGATIVE (NEGATIVE) Urine Bilirubin NEGATIVE mg/dL (NEGATIVE) Urine Urobilinogen 0.2 mg/dL (0.2-1.0) Urine Leukocyte Esterase NEGATIVE Adrian/uL Labs Reviewed?: Yes ED Course ED Course Orders Procedure Category Date Status Time 12 Lead Ekg Tracing- EKG 07/27/25 Resulted Technical 23:05 Hydralazine 20mg Inj PHA 07/27/25 Complete (Apresoline 20mg In 23:45 Cbc With Differential LAB 07/27/25 Complete 23:45 Basic Metabolic Panel LAB 07/27/25 Complete 23:45 Urinalysis Profile LAB 07/27/25 Complete 23:45 Hydralazine 20mg Inj PHA 07/28/25 Complete (Apresoline 20mg In 00:00 Hydralazine 20mg Inj PHA 07/28/25 Complete (Apresoline 20mg In 01:00 Alprazolam 0.5mg PHA 07/28/25 Complete (Xanax 0.5mg) 01:30 Current Medications Medications (Trade) Dose Ordered Sig/Travis Route PRN Reason Start Time Stop Time Status Last Admin Dose Admin Alprazolam (XANax 0.5MG) 0.5 mg ONCE ONCE PO 07/28/25 01:30 07/28/25 01:31 DC 07/28/25 01:28 Hydralazine HCl (APRESOLine 20MG INJ) 10 mg ONCE ONCE IV 07/28/25 00:00 07/28/25 00:01 DC 07/27/25 23:54 Hydralazine HCl (APRESOLine 20MG INJ) 10 mg ONCE ONCE IV 07/28/25 01:00 07/28/25 01:10 DC 07/28/25 01:14 Hydralazine HCl (APRESOLine 20MG INJ) 20 mg STK-MED ONCE .ROUTE 07/27/25 23:45 07/27/25 23:46 DC Vital Signs Date Time Temp Pulse Resp B/P (MAP) Pulse Ox O2 Delivery O2 Flow Rate FiO2 07/28/25 01:33 98.8 98 18 166/65 99 Room Air* 0 21 07/28/25 00:41 98.8 87 18 201/92 98 Room Air* 0 21 07/27/25 23:55 98.8 89 18 168/68 97 Room Air* 0 21 07/27/25 23:01 98.1 71 20 200/108 96 Room Air Medical Decision Making MDM Differential diagnosis: Hypertensive urgency, uncontrolled hypertension, hypertensive emergency, accelerated hypertension, malignant hypertension This is a 74-year-old female who presented to the emergency room stating that she and her do routine blood pressure checks intact and her blood pressure apparently was over 200 systolic and hence they came in for evaluation. No headache blurred vision diplopia facial droop motor weakness or seizure activity. No history of any chest pain pressure hearing patient was totally asymptomatic from review standpoint Temperature 98 pulse 71 respirations 20 blood pressure 200/108 at the time of presentation with a pulse oximetry of 96% on room air Chronic medical problems include anxiety and depression and osteoarthritis, hypertension, hypercholesterolemia and hypothyroidism 12:30 a.m. labs CBC and BNP 7 are totally within normal limits Urinalysis was unremarkable. Repeat blood pressure was 168/68. However the blood pressure spiked again which required a dose of hydralazine. Once the blood pressure was in the acceptable range patient will be discharged to home to follow up with her primary care physician to have her hypertension management optimized Rationale: Tests considered and ordered secondary to shared decision making include: Blood work and urinalysis Previous outside records reviewed: Old ER visits. Risk of complication and/or morbidity or mortality of patient management: None Medications-Per medication reconciliation Need for hospitalization: Patient does not meet criteria for hospitalization. Need for emergency major/minor surgery: No There are no social concerns with this patient. Prescription drug management Prescriptions will include symptomatic care Patient's prior external medical records from other ER visits were reviewed by me as indicated. Prior testing and results from previous visits were reviewed. Prior tests were taken into account with medical decision making and resource utilization, independent historian/historians were used to obtain complete medical history. I independently interpreted the test that were performed, results were reviewed by me and considered findings on radiology if ordered. Medical management and examination interpretation discussions were had by me with other qualified healthcare professionals as indicated for the patient's care. Problem List Problem List: (1) Asymptomatic hypertensive urgency DX & DISP Disposition: Discharge Departure Impression: Primary Impression: Asymptomatic hypertensive urgency Condition: Stable Additional Instructions: Patient and the caregiver have been informed of all the diagnostic tests and the imaging conducted during the today's visit to the emergency room and has verbalized understanding of the results I have personally reviewed and interpreted all diagnostic exams performed here in the ER today as well as the vital signs documented by the nursing staff. The patient is now being discharged to home and should follow up with the primary care physician or the specialist as directed by the ER staff. Referrals: VICKY MOSS MD (PCP) JOSEFINA MEHTA MD Jul 28, 2025 00:37
[2025-07-28 00:42] LABS: APPEARANCE,URINE CLEAR (CLEAR); GLUCOSE, URINE (UA) NEGATIVE (NEGATIVE); LEUKOCYTE ESTERASE ,URINE NEGATIVE Leu/uL (NEGATIVE); NITRATE,URINE NEGATIVE (NEGATIVE); OCCULT BLOOD,URINE NEGATIVE (NEGATIVE)
[2025-07-28 00:46] LABS: ADD UA MICROSCOPIC NO
--- NOTE | 2025-07-28 00:59 | NUR ---
PT STILL HAVE BP OF 190 SYSTOLIC PRIOR DC, MADE DR MEHTA AWARE
[2025-07-28 01:33] VITALS: BP 166/65; PULSE 98; RESP 18; TEMP 98.8; O2SAT 99
--- NOTE | 2025-07-28 07:29 | EKG ---
[facility] Test Date: 2025-07-27 Test Time: 22:59:32 Pat Name: OUSMANE MO Department: [facility] Room: Gender: F Research Scientist: [id number] : 1950 Requested By: JOSEFINA MEHTA Order Number: [id number] Reading MD: Case Chan Measurements Intervals [place] Rate: 70 P: 54 AR: 166 QRS: 4 QRSD: 84 T: 53 QT: 389 QTc: 419 Interpretive Statements Sinus rhythm Compared to ECG 01/26/2025 13:58:50 No significant changes Electronically Signed On 07-28-2025 20:14:08 METAL BONDING WORKER by Case Chan Please click the below link to view image of tracing.
== END 2025-07-28 01:40 | disposition home or self-care (01) ==
LOC: EDH 22:58
DX: I16.0 Hypertensive urgency (principal); E03.9 Hypothyroidism, unspecified; E78.00 Pure hypercholesterolemia, unspecified; F41.9 Anxiety disorder, unspecified; F32.A Depression, unspecified; M19.90 Unspecified osteoarthritis, unspecified site; Z88.5 Allergy status to narcotic agent; Z88.8 Allergy status to other drugs, medicaments and biological substances; Z79.899 Other long term (current) drug therapy; Z79.52 Long term (current) use of systemic steroids
CPT/HCPCS: 99284; 96374; 80048; 85025; 81003; 36415; 93005; 96376; J0360

== ENCOUNTER 2025-08-04 12:02 | Emergency (ER) | payer OTHER, MEDICAID ==
[~2025-08-04] VITALS: Ht 152.4 cm; Wt 83.9 kg
[2025-08-04 12:04] VITALS: TEMP 99
--- NOTE | 2025-08-04 12:22 | NUR ---
PT JUST NOW BEING BROUGHT BACK TO MY ED BED 16
[2025-08-04 12:30] LABS: IMMATURE GRANULOCYTE ABSOLUTE 0.02 K/uL (0-1); NUCLEATED RED BLOOD CELLS 0.0 % (0.0-0.19); PLATELET COUNT (AUTO) 193 K/uL (130-400); RED BLOOD CELL COUNT(AUTO) 5.26 MIL/uL (4.00-5.50); RED CELL DISTRIBUTION WIDTH 13.7 % (11.0-15.5); WHITE BLOOD COUNT (AUTO) 7.6 K/uL (4.8-10.8)
--- NOTE | 2025-08-04 12:36 | EKG ---
[facility] Test Date: 2025-08-04 Test Time: 12:22:07 Pat Name: OUSMANE MO Department: [facility] Room: Gender: F Gun Club Manager: [id number] : 1950 Requested By: RADHA VILLEDA Order Number: [id number] Reading MD: Case Chan Measurements Intervals [place] Rate: 97 P: 38 DE: 143 QRS: 14 QRSD: 92 T: 26 QT: 349 QTc: 445 Interpretive Statements Sinus rhythm Compared to ECG 07/27/2025 22:59:32 No significant changes Electronically Signed On 08-04-2025 23:51:32 ROLLER SHOP UTILITY WORKER by Case Chan Please click the below link to view image of tracing.
[2025-08-04 12:37] LABS: CREATININE 0.8 mg/dL (0.5-1.0); GLOMERULAR FILTR. RATE CALC 77.0 mL/min (>90); GLUCOSE,RANDOM 116.0 mg/dL (70-105); SODIUM SERUM 140.0 mmol/L (136-145); UREA NITROGEN, BLOOD 17.0 mg/dL (7-18)
--- NOTE | 2025-08-04 12:42 | NUR ---
PER SON, PT WAS SENT BY THE PSYCHIATRIST TO GET A FULL ASSESSMENT OF BLOOD WORK D/T RECENT HX OF ELEVATED AMMONIA LEVELS.
--- NOTE | 2025-08-04 13:23 | NUR ---
PT JUST NOW ASSISTED OOB TO BR FOR A URINE COLLECTION.
--- NOTE | 2025-08-04 13:27 | HMCIMG ---
EXAM: CR Chest, 1 View. CLINICAL HISTORY: htn COMPARISON: None provided. FINDINGS: LUNGS: The lungs show no infiltrate or other acute finding. PLEURAL SPACES: No evidence of pleural effusion or pneumothorax. MEDIASTINUM: The cardiomediastinal silhouette is within normal limits. BONES: No acute osseous abnormality. IMPRESSION: No acute cardiopulmonary pathology is evident. /[place]
--- NOTE | 2025-08-04 13:30 | NUR ---
PT RECONNECTED BACK ON MONITOR AND URINE WAS COLLECTED, LABELED AND SENT
[2025-08-04 13:51] LABS: APPEARANCE,URINE CLEAR (CLEAR); GLUCOSE, URINE (UA) NEGATIVE (NEGATIVE); LEUKOCYTE ESTERASE ,URINE 25 Leu/uL (NEGATIVE); NITRATE,URINE NEGATIVE (NEGATIVE); OCCULT BLOOD,URINE NEGATIVE (NEGATIVE); SQUAMOUS EPITHELIAL CELL,UR RARE /HPF (0-2)
--- NOTE | 2025-08-04 13:56 | NUR ---
ALL RESULTS IN AND PENDING ED TO REVIEW
--- NOTE | 2025-08-04 14:05 | ERN ---
General Chief Complaint: Hypertension Stated Complaint: HYPERTENSION,ELEVATED AMMONIA Time Seen by MD: 12:04 Source: patient History of Present Illness Initial Comments In his is a 74-year-old female coming in due to elevated blood pressure. Has been also states that she was told two weeks ago with the she had an elevated ammonia level. Patient has been taking lactulose. Allergies: Coded Allergies: codeine (Verified Allergy, Unknown, 09/07/19) oseltamivir (Verified Allergy, Unknown, 09/07/19) Home Meds Active Scripts Prednisone (Prednisone) 20 Mg Tablet, 2 TAB PO DAILY for 5 Days, #10 TAB 0 Refills Prov:MAGALYS RAGLAND [employer] 09/03/23 Cyclobenzaprine HCl (Flexeril) 10 Mg Tab, 10 MG PO BID, #30 TAB Prov:MONIKA MANN 12/24/21 Naproxen (Naprosyn) 500 Mg Tablet, 500 MG PO BIDPC, #60 TAB Prov:MONIKA MANN 12/24/21 Metronidazole (Metronidazole) 500 Mg Tablet, 500 MG PO TID for 3 Days, #9 TAB Prov:MANE ALMENDAREZ [employer]ACHINE OPERATOR 09/10/19 Levofloxacin (Levofloxacin) 500 Mg Tablet, 500 MG PO DAILY for 3 Days, #3 TAB Prov:MANE ALMENDAREZ [employer]ING MACHINE OPERATOR 09/10/19 Reported Medications Alendronate Sodium (Alendronate Sodium) 70 Mg Tablet, 70 MG PO QWEEK, TAB q sunday09/07/19 Esomeprazole Magnesium (Esomeprazole Magnesium) 40 Mg Capsule.dr, 40 MG PO ACBKFST, CAP 09/07/19 Levothyroxine Sodium (Levothyroxine Sodium) 75 Mcg Tablet, 75 MCG PO ACBKFST, TAB 09/07/19 Lisinopril (Lisinopril) 20 Mg Tablet, 20 MG PO DAILY, TAB 09/07/19 Amlodipine Besylate (Amlodipine Besylate) 2.5 Mg Tablet, 2.5 MG PO DAILY, TAB 09/07/19 Atorvastatin Calcium (Atorvastatin Calcium) 40 Mg Tablet, 40 MG PO HS, TAB 09/07/19 Paroxetine HCl (Paroxetine HCl) 20 Mg Tablet, 20 MG PO DAILY, TAB 09/07/19 Past Medical History Past Medical History: Anxiety, Arthritis, Depression, High Cholesterol, Hypertension, Hypothyroid Medical History Other: VERTIGO Past Surgical History: Family History Family History: Negative Social History Social History: Negative Female( History) History: Not Applicable ROS Dictation CONSTITUTIONAL: No chills, no fever, no weakness, no diaphoresis, no malaise. HEAD/FACE: No signs of trauma. EENT: No eye pain, no blurred vision, no tearing, no double vision, no ear pain, no ear discharge, no nose pain, no nasal congestion, no throat pain, no throat swelling, no mouth pain. RESPIRATORY: No cough, no orthopnea, no SOB, no stridor, no wheezing. CARDIOVASCULAR: No chest pain, no edema, no palpitations, no syncope. GASTROINTESTINAL/ABDOMINAL: No abdominal pain, no constipation, no diarrhea, no nausea, no vomiting. GENITOURINARY: No abnormal discharge, no dysuria, no frequent urination, no hematuria. No complaints of pain in the genitals. MUSCULOSKELETAL: No back pain, no gout, no joint pain, no joint swelling, no muscle pain, no muscle stiffness, no neck pain. INTEGUMENTARY: No change in color, no change in hair/nails, no dryness, no lesion, no lumps, no rash. NEUROLOGICAL/PSYCH: No anxiety, not depressed, no emotional problem, no headache, no numbness, no pre-existing deficit, no history of seizures, no tremors, no weakness. HEMATOLOGIC/LYMPHATIC: Not anemic, no history of blood clots, no apparent bleeding, no bruising, glands not swollen. All Systems Negative, Except as Noted. Physical Exam Physical Exam Dictation VITAL SIGNS: Reviewed. GENERAL APPEARANCE: Alert, oriented x3, no acute distress, obese. HEAD AND FACE: Non-traumatic. EYES: PERRL, pink conjunctivas, eyelid no trauma, anterior chamber clear. EARS: Pinnas intact and no signs of trauma or erythema. Ear canals clear and no discharge. TMs no erythema. NOSE: No discharge, no bleeding. OROPHARYNX: Mouth normal, teeth no caries, tongue pink. Pharynx clear, no erythema. Tonsils no exudates, no abscesses noted. Mucous membrane moist. NECK: Supple, non-tender, no thyromegaly, no masses, no JVD, no bruits. BREAST: Deferred. CHEST: No tenderness, no crepitus, no paradoxical movement, no retractions. LUNGS: Clear, well-ventilated, symmetric, no rales, no wheezing, no rhonchi, no stridor, good breath sounds bilaterally. HEART: Regular rate, regular rhythm, no murmur, no gallops. VASCULAR: No peripheral edema. ABDOMEN: Soft, positive bowel sounds, nondistended, no guarding, nontender, no rebound, no masses no hepatomegaly, no splenomegaly, no Palacios's sign, no hernias. RECTAL: Deferred. GENITAL: Deferred. NEUROLOGICAL: Normal speech, gross motor function intact, gross sensory function intact. MUSCULOSKELETAL: Neck nontender, full range of motion, back nontender, full range of motion. EXTREMITIES: Nontender, full range of motion. SKIN: Color pink, dry, no turgor, no rash, no lacerations, no abrasions, no contusions. LYMPHATICS: Deferred. Results Laboratory and Microbiology Lab and Micro Result Laboratory Tests Test 08/04/25 12:22 08/04/25 13:29 White Blood Count 7.6 K/uL (4.8-10.8) Red Blood Count 5.26 MIL/uL (4.00-5.50) Hemoglobin 15.5 g/dL (12.0-16.0) Hematocrit 46.2 % (36-48) Mean Corpuscular Volume 87.8 fL (79-99) Mean Corpuscular Hemoglobin 29.5 pg (27.0-33.0) Mean Corpuscular Hemoglobin Concent 33.5 g/dL (32.0-36.0) Red Cell Distribution Width 13.7 % (11.0-15.5) Platelet Count 193 K/uL (130-400) Mean Platelet Volume 10.3 fL (7.5-10.5) Immature Granulocyte % (Auto) 0.3 % (0-1) Neutrophils (%) (Auto) 58.9 % (40.0-77.0) Lymphocytes (%) (Auto) 33.3 % (21.0-51.0) Monocytes (%) (Auto) 6.5 % (3.0-13.0) Eosinophils (%) (Auto) 0.3 % (0.0-8.0) Basophils (%) (Auto) 0.7 % (0.0-5.0) Neutrophils # (Auto) 4.5 K/uL (1.8-7.7) Lymphocytes # (Auto) 2.5 K/uL (1.0-4.8) Monocytes # (Auto) 0.5 K/uL (0.1-1.0) Eosinophils # (Auto) 0.02 K/uL (0.00-0.70) Basophils # (Auto) 0.05 K/uL (0.00-0.20) Absolute Immature Granulocyte (auto 0.02 K/uL (0-1) Nucleated Red Blood Cells 0.0 % (0.0-0.19) Sodium Level 140 mmol/L (136-145) Potassium Level 3.9 mmol/L (3.5-5.1) Chloride Level 104 mmol/L (101-111) Carbon Dioxide Level 26 mmol/L (21-32) Blood Urea Nitrogen 17 mg/dL (7-18) Creatinine 0.8 mg/dL (0.5-1.0) Glomerular Filtration Rate Calc 77 mL/min (>90) Random Glucose 116 mg/dL (70-105) H Total Calcium 8.9 mg/dL (8.5-10.1) Ammonia 15 umol/L (11-32) Troponin I High Sensitivity 6 ng/L (4-50) Urine Color YELLOW (YELLOW) Urine Appearance CLEAR (CLEAR) Urine pH 5.5 (5.0-8.0) Urine Specific [place] 1.019 (1.001-1.031) Urine Protein NEGATIVE mg/dL (NEGATIVE) Urine Glucose (UA) NEGATIVE mg/dL (NEGATIVE) Urine Ketones 5 mg/dL (NEGATIVE) H Urine Occult Blood NEGATIVE (NEGATIVE) Urine Nitrate NEGATIVE (NEGATIVE) Urine Bilirubin NEGATIVE mg/dL (NEGATIVE) Urine Urobilinogen 0.2 mg/dL (0.2-1.0) Urine Leukocyte Esterase 25 [place]/uL (NEGATIVE) H Urine RBC 0-1 /HPF (0-1) Urine WBC 2-5 /HPF (0-1) H Urine Squamous Epithelial Cells RARE /HPF (0-2) Urine Bacteria RARE /HPF (None Seen) Labs Reviewed?: Yes EKG/XRAY/US/CT/MRI EKG Comment 08/04/2025 time 12:22 p.m. Ventricular rate 97 Sinus rhythm [place] [address] wave elevation or depression X-RAY Comment [place] [address] [place] [address] IMAGING REPORT Signed PATIENT: OUSMANE MO MR#: [id number] : 1950 SEX: F AGE: 74 LOCATION: [facility] ORDER 1211 STATUS: [facility] ER REPORT#: [id number] SERVICE 120 REASON: htn ORDERING PHYSICIAN: RADHA VILLEDA MD PROCEDURE: CXR1VW - CHEST 1VW EXAM: CR Chest, 1 View. CLINICAL HISTORY: htn COMPARISON: None provided. FINDINGS: LUNGS: The lungs show no infiltrate or other acute finding. PLEURAL SPACES: No evidence of pleural effusion or pneumothorax. MEDIASTINUM: The cardiomediastinal silhouette is within normal limits. BONES: No acute osseous abnormality. IMPRESSION: No acute cardiopulmonary pathology is evident. /[place] DICTATED BY: KHALIDA WHEAT Jr., MD DATE: 08/04/251425 ELECTRONICALLY SIGNED BY: KHALIDA WHEAT Jr., MD DATE: 08/04/251425 [facility] MDM: Differential diagnosis: Hypertension chronic, anxiety, Rationale: Tests considered and ordered secondary to shared decision making include: Previous outside records reviewed: Old ER visits. Risk of complication and/or morbidity or mortality of patient management: None Medications-Per medication reconciliation Need for hospitalization: Patient does not meet criteria for hospitalization. Need for emergency major/minor surgery: No Patient is a 74-year-old female coming in to be evaluated for elevated blood pressure. Per has been patient has been had her blood pressure medication changed recently but at home her blood pressure radiating were still high. Along with this has been states that she was told that she had an elevated ammonia level would in which she has been taking lactulose for. Laboratory workup which includes cardiac workup within normal limits long with this blood pressure was within normal limits on its own. I did advise has been to follow up with PCP patient does has a history of anxiety and I would did explain that anxiety could cause these episodes of elevated blood pressure. ED Course Orders Procedure Category Date Status Time Cbc With Differential LAB 08/04/25 Complete 12:09 Chest 1vw RAD 08/04/25 Resulted 12:09 12 Lead Ekg Tracing- EKG 08/04/25 Complete Technical 12:09 Troponin I High LAB 08/04/25 Complete Sensitivity 12:09 Basic Metabolic Panel LAB 08/04/25 Complete 12:09 Ammonia LAB 08/04/25 Complete 12:09 Urinalysis LAB 08/04/25 Complete W/Microscopic 12:09 Vital Signs Date Time Temp Pulse Resp B/P (MAP) Pulse Ox O2 Delivery O2 Flow Rate FiO2 08/04/25 13:22 97 17 154/82 93 Room Air* 0 21 08/04/25 12:41 99 17 171/87 94 Room Air* 0 21 08/04/25 12:04 99.0 107 20 173/98 94 Room Air DX & DISP Disposition: Discharge Departure Impression: Primary Impression: Anxiety Additional Impression: History of hypertension Condition: Stable Additional Instructions: You have been reviewed in the emergency department at [facility] after presenting with chest pain. After considering your history, your risk factors, your EKG and your blood test troponins, have been found to be at very low risk less than (1 in 100) of having a major adverse cardiac event (like hear t attack) in the near future. In the " low risk" group, the risks of doing further tests and treatment as the inpatient outweighs the benefits. In many patients in the low risk group for the test of any sort or unnecessary, however he should discuss this further with his general practitioner who will understand the medical and personal backgrounds better. Because we have never declared you" no risk" we would suggest. 1 returning for medical review if you have further episodes of chest pain/arm pain or other concerning symptoms like dizziness, collapse, palpitations or shortness of breath. 2. Following up with your local doctor who will consider the need for further testing and will also ensure that any modifiable risk factors you may have for heart disease are optimally managed. Patient will be discharged in stable condition at the moment discharge patient states , no chest pain Referrals: VICKY MOSS MD (PCP) Time of Disposition: 14:04 RADHA VILLEDA MD Aug 04, 2025 14:05
[2025-08-04 14:41] VITALS: BP 152/87; PULSE 94; RESP 16; O2SAT 94
== END 2025-08-04 14:43 | disposition home or self-care (01) ==
LOC: EDH 12:02
DX: F41.9 Anxiety disorder, unspecified (principal); I10 Essential (primary) hypertension; E72.20 Disorder of urea cycle metabolism, unspecified; E03.9 Hypothyroidism, unspecified; F32.A Depression, unspecified; E78.00 Pure hypercholesterolemia, unspecified; M19.90 Unspecified osteoarthritis, unspecified site; Z88.5 Allergy status to narcotic agent; Z88.8 Allergy status to other drugs, medicaments and biological substances; Z79.52 Long term (current) use of systemic steroids; Z79.899 Other long term (current) drug therapy
CPT/HCPCS: 36415; 71045; 80048; 81001; 82140; 84484; 85025; 93005; 99285